=== PATIENT | male | born 1995 | race Caucasian/White ===

== ENCOUNTER 2017-05-28 19:28 | Emergency (ER) | payer OTHER ==
[~2017-05-28] VITALS: Ht 172.7 cm; Wt 92.5 kg
[2017-05-28 19:49] VITALS: Ht 172.7 cm; Wt 92.5 kg
[2017-05-28 20:38] VITALS: BP 139/80
== END 2017-05-28 20:38 | disposition home or self-care (01) ==
LOC: ED 19:28
DX: J34.0 Abscess, furuncle and carbuncle of nose (principal); J45.909 Unspecified asthma, uncomplicated

== ENCOUNTER 2017-08-07 19:47 | Emergency (ER) | payer OTHER ==
[2017-08-07 20:18] VITALS: BP 130/78
== END 2017-08-07 20:18 | disposition home or self-care (01) ==
LOC: ED 19:47
DX: B35.4 Tinea corporis (principal); B36.9 Superficial mycosis, unspecified

== ENCOUNTER 2017-12-05 15:58 | Emergency (ER) | payer OTHER ==
[~2017-12-05] VITALS: Ht 172.7 cm; Wt 91.2 kg
[2017-12-05 16:12] VITALS: Ht 172.7 cm; Wt 91.2 kg
[2017-12-05 17:29] VITALS: BP 129/81
== END 2017-12-05 17:29 | disposition home or self-care (01) ==
LOC: ED 15:58
DX: L03.114 Cellulitis of left upper limb (principal); J45.909 Unspecified asthma, uncomplicated

== ENCOUNTER 2017-12-07 20:36 | Emergency (ER) | payer OTHER ==
[2017-12-08 01:04] VITALS: BP 130/75
== END 2017-12-08 01:04 | disposition home or self-care (01) ==
LOC: ED 20:36
DX: L02.414 Cutaneous abscess of left upper limb (principal); J45.909 Unspecified asthma, uncomplicated
CPT/HCPCS: J0696; J2001

== ENCOUNTER 2017-12-08 22:25 | Emergency (ER) | payer OTHER ==
[~2017-12-08] VITALS: Ht 172.7 cm; Wt 94.8 kg
[2017-12-08 22:27] VITALS: Ht 172.7 cm; Wt 94.8 kg
[2017-12-08 23:16] VITALS: BP 139/83
== END 2017-12-08 23:16 | disposition home or self-care (01) ==
LOC: ED 22:25
DX: Z48.01 Encounter for change or removal of surgical wound dressing (principal); J45.909 Unspecified asthma, uncomplicated

== ENCOUNTER 2017-12-10 00:23 | Emergency (ER) | payer OTHER ==
[~2017-12-10] VITALS: Ht 172.7 cm; Wt 91.2 kg
[2017-12-10 00:39] VITALS: Ht 172.7 cm; Wt 91.2 kg
[2017-12-10 02:15] VITALS: BP 129/76
== END 2017-12-10 02:15 | disposition home or self-care (01) ==
LOC: ED 00:23
DX: Z48.01 Encounter for change or removal of surgical wound dressing (principal); R03.0 Elevated blood-pressure reading, without diagnosis of hypertension; J45.909 Unspecified asthma, uncomplicated

== ENCOUNTER 2018-06-26 22:29 | Emergency (ER) | payer OTHER ==
[~2018-06-26] VITALS: Ht 172.7 cm; Wt 94.8 kg
[2018-06-26 22:33] VITALS: BP 153/92; Ht 172.7 cm; Wt 94.8 kg
== END 2018-06-26 23:39 | disposition home or self-care (01) ==
LOC: ED 22:29
DX: J34.0 Abscess, furuncle and carbuncle of nose (principal); J45.909 Unspecified asthma, uncomplicated

== ENCOUNTER 2018-06-28 19:52 | Emergency (ER) | payer OTHER ==
[~2018-06-28] VITALS: Ht 172.7 cm; Wt 95.3 kg
[2018-06-28 20:03] VITALS: Ht 172.7 cm; Wt 95.3 kg
[2018-06-28 21:50] VITALS: BP 131/65
== END 2018-06-28 21:50 | disposition home or self-care (01) ==
LOC: ED 19:52
DX: L03.211 Cellulitis of face (principal); R03.0 Elevated blood-pressure reading, without diagnosis of hypertension; J45.909 Unspecified asthma, uncomplicated

== ENCOUNTER 2018-09-03 14:36 | Emergency (ER) | payer OTHER ==
[~2018-09-03] VITALS: Ht 172.7 cm; Wt 93.9 kg
[2018-09-03 14:54] VITALS: Ht 172.7 cm; Wt 93.9 kg
[2018-09-03 17:41] VITALS: BP 122/65
== END 2018-09-03 17:14 | disposition home or self-care (01) ==
LOC: ED 14:36
DX: S09.8XXA Other specified injuries of head, initial encounter (principal); J45.909 Unspecified asthma, uncomplicated; V43.92XA Unspecified car occupant injured in collision with other type car in traffic accident, initial encounter; Y93.89 Activity, other specified; Y92.488 Other paved roadways as the place of occurrence of the external cause; Y99.8 Other external cause status

== ENCOUNTER 2018-09-04 18:56 | Emergency (ER) | payer OTHER ==
[~2018-09-04] VITALS: Ht 172.7 cm; Wt 95.7 kg
[2018-09-04 19:05] VITALS: Ht 172.7 cm; Wt 95.7 kg
[2018-09-04 21:03] VITALS: BP 136/63
== END 2018-09-04 21:03 | disposition home or self-care (01) ==
LOC: ED 18:56
DX: F07.81 Postconcussional syndrome (principal); J45.909 Unspecified asthma, uncomplicated; V89.2XXD Person injured in unspecified motor-vehicle accident, traffic, subsequent encounter

== ENCOUNTER 2018-12-16 20:36 | Emergency (ER) | payer OTHER ==
[~2018-12-16] VITALS: Ht 172.7 cm; Wt 97.5 kg
[2018-12-16 20:40] VITALS: Ht 172.7 cm; Wt 97.5 kg
[2018-12-16 21:09] VITALS: BP 131/71
== END 2018-12-16 21:09 | disposition home or self-care (01) ==
LOC: ED 20:36
DX: L02.414 Cutaneous abscess of left upper limb (principal); J45.909 Unspecified asthma, uncomplicated

== ENCOUNTER 2018-12-18 14:08 | Emergency (ER) | payer OTHER ==
[~2018-12-18] VITALS: Ht 172.7 cm; Wt 98.4 kg
[2018-12-18 14:22] VITALS: Ht 172.7 cm; Wt 98.4 kg
[2018-12-18 16:08] VITALS: BP 121/67
== END 2018-12-18 16:08 | disposition home or self-care (01) ==
LOC: ED 14:08
DX: L02.414 Cutaneous abscess of left upper limb (principal); J45.909 Unspecified asthma, uncomplicated; Z48.01 Encounter for change or removal of surgical wound dressing